=== PATIENT | female | born 1970 | race Caucasian/White ===

== ENCOUNTER 2018-07-20 14:09 | Outpatient (CLI) | payer OTHER ==
[~2018-07-20 14:09] MED LIST: ANAPROX275 MG PO; GAS RELIEF125 M1 PO; PROFERRIN-FORTE1 TAB PO; TYLENOL-CODEINE1 TAB PO
== END 2018-07-20 14:59 | disposition home or self-care (01) ==
LOC: NUCLEAR 14:09
DX: N95.9 Unspecified menopausal and perimenopausal disorder (principal); E55.9 Vitamin D deficiency, unspecified; M81.0 Age-related osteoporosis without current pathological fracture

== ENCOUNTER 2018-07-26 10:31 | Outpatient (CLI) | payer OTHER | END 2018-07-26 10:38 | disposition home or self-care (01) | LOC: RAD 10:31 | DX: R05 Cough (principal) ==

== ENCOUNTER 2021-08-16 13:58 | Outpatient (CLI) | payer OTHER | END 2021-08-16 14:01 | disposition home or self-care (01) | LOC: NUCLEAR 13:58 | PROVIDERS: ATTEND Obstetrics & Gynecology | DX: M85.89 Other specified disorders of bone density and structure, multiple sites (principal) ==

== ENCOUNTER 2024-08-05 07:42 | Outpatient (CLI) | payer OTHER | END 2024-08-05 07:44 | disposition home or self-care (01) | LOC: TOM 07:42 | PROVIDERS: ATTEND Orthopaedic Surgery | DX: M79.671 Pain in right foot (principal); M79.672 Pain in left foot ==

== ENCOUNTER 2024-08-20 12:27 | Outpatient (CLI) | payer OTHER | END 2024-08-20 12:29 | disposition home or self-care (01) | LOC: NUCLEAR 12:27 | PROVIDERS: ATTEND Internal Medicine Rheumatology | DX: M81.0 Age-related osteoporosis without current pathological fracture (principal) ==